=== PATIENT | female | born 1990 | race Caucasian/White ===

== ENCOUNTER 2017-02-12 14:45 | Emergency (ER) | payer OTHER ==
[~2017-02-12] VITALS: Ht 157.5 cm; Wt 56.0 kg
[~2017-02-12 14:45] MED LIST: ACET1TAB40 PO; ALBU8.5H3 INH; AMO500 PO; CETI10CA PO; ERYT1OIN6 RIGHT EYE; FLUT9.9S NASAL; GUAI473L22 PO; IBUP-1542 PO; IBUP800T25 PO
[2017-02-12 14:56] VITALS: Ht 157.5 cm; Wt 56.0 kg
[2017-02-12] MEDS ORDERED: ACET/BUTAL/CAFF/CODEINE CAP PO ONE (15:30)
--- NOTE | 2017-02-12 16:09 | RADRPT ---
PROCEDURE: CT Head without contrast. CLINICAL INDICATION: headache behind left eye, hx of migraines TECHNIQUE: Continuous axial CT images were obtained from the base of skull to the vertex. No cont rast was administered. The calculated radiation dose measures 720 mGy centimeters. The CTDI measures 45 mGy COMPARISON: No prior studies are available for comparison. FINDINGS: The ventricles are symmetric and normal in size. There is no mass effect or midline shift. There i s no abnormal intra-axial or extra-axial fluid collection. There is no evidence of intracranial hem orrhage. There are no abnormal areas of increased or decreased attenuation in the brain parenchyma. The bony calvarium is intact. The orbital soft tissue contents are unremarkable. Paranasal sinuses appear clear IMPRESSION: No mass effect or acute intracranial bleed. Unremarkable CT brain. RPTAT: HBST .Stef Alex MD, MD Date Time Electronically viewed and signed by .Stef Alex MD, on 02/12/2017 16:09 .T/
[2017-02-12] MEDS ORDERED: FIORICET PO (16:30)
[2017-02-12] MEDS ORDERED: TETRACAINE 0.5% 4 ML OPH LEFT EYE ONE (16:30)
[2017-02-12] MEDS ORDERED: ABCC1C PO (16:32)
[2017-02-12 16:57] VITALS: BP 130/76; PULSE 68; RESP 16; TEMP 97.9
--- NOTE | 2017-02-12 17:03 | ERD ---
ER Documentation Chief Complaint Date/Time DATE: 02/12/17 TIME: 16:48 Chief Complaint headache behind left eye x 1.5 wks; no n/v HPI This is a 26-year-old female presenting to emergency department for headache behind the left eye 1.5 weeks. Patient has history of migraine headaches and states this feels different than her normal migraines. Patient normally takes Advil at home for migraines. Patient states pain is localized to behind her left eye. Has no foreign body sensation. No halos around lights or curtain coming down vertically in visual field. No vision loss or change in vision. Patient states she has some blurriness to left eye. Patient has floaters in visual álvarez at times. No change in mood or behavior. No altered level of consciousness. No confusion. No facial weakness or paralysis. No slurred speech or facial droop. No erythema to eye. Denies this being the worst headache she is ever had. No head or eye trauma. ROS All systems reviewed and are negative except as per history of present illness. Medications Home Meds Active Scripts Trcdjmexmpjlw-Qxjwjumftz-Wvfdxiyi-Codeine* (Fioricet w/Codeine*) [id number] -30MG Cap, 1 CAP PO Q4H Y for PAIN LEVEL 1-5, #10 CAP Prov:JAMES ELLIS NP 02/12/17 Albuterol Sulfate* (Proair HFA*) 8.5 Gm Hfa.aer.ad, 2 PUFF INH Q4H Y for WHEEZING AND SOB, #1 INHALER Prov:RAUDEL GREEN NP 10/11/16 Fluticasone Propionate (Flonase Allergy Relief) 9.9 Ml Wickes.susp, 1 SPRAY NASAL BID, #1 BOTTLE TO EACH NOSTRIL Prov:RAUDEL GREEN NP 10/11/16 Cetirizine Hcl* (Zyrtec*) 10 Mg Capsule, 10 MG PO DAILY, #30 TAB.CHEW Prov:RAUDEL GREEN NP 10/11/16 Guaifenesin-Codeine Phosphate* (Guaifenesin* AC Cough Syrup) 473 Ml Liquid, 10 ML PO Q4H Y for COUGH, #60 ML Prov:RAUDEL GREEN NP 10/11/16 Ibuprofen* (Motrin*) 800 Mg Tab, 800 MG PO Q6, #30 TAB Prov:ELVIN GONZALEZ PA-C 02/04/16 Erythromycin (Erythromycin Opth) 3.5 Gm Oint..gm., 1 APPLIC RIGHT EYE QID for 7 Days, EA Prov:ELVIN GONZALEZ PA-C 02/04/16 Acetaminophen-Codeine* (Acetaminophen-Cod #3*) 300-30 Mg Tab, 1 TAB PO Q4H Y for PAIN, #10 TAB Prov:CARLA KATE MD 08/23/15 Ibuprofen* (Motrin*) 600 Mg Tab, 600 MG PO Q6, #14 TAB Prov:CARLA KATE MD 08/23/15 Amoxicillin* (Amoxicillin*) 500 Mg Cap, 500 MG PO TID for 10 Days, CAP Prov:CARLA KATE MD 08/23/15 Discontinued Scripts Acetamin/Butalbital/Caffeine* (Fioricet*) [id number] Tab, 1 TAB PO Q6H Y for PAIN, #10 TAB Prov:JAMES ELLIS NP 02/12/17 Allergies Allergies: Uncoded Allergies: IVP DYE (Allergy, Unknown, 04/05/15) PMhx/Soc Migraine headache Hx Neurological Disorder: Yes Hx Alcohol Use: No Hx Substance Use: No Hx Tobacco Use: No Physical Exam Vitals Vital Signs Date Time Temp Pulse Resp B/P Pulse Ox O2 Delivery O2 Flow Rate FiO2 02/12/17 14:56 97.8 81 18 122/74 99 Physical Exam Const: alert, oriented to person, place and time. smiling during exam Head: Atraumatic Eyes: Normal Conjunctiva. PERRL. no subconjunctival hemorrhage. ENT: Normal External Ears, Nose and Mouth. Neck: Full range of motion..~ No meningismus. Resp: Clear to auscultation bilaterally. no wheezing, rhonchi or crackles Cardio: Regular rate and rhythm, no murmurs Abd: Soft, non tender, non distended. Normal bowel sounds Skin: No petechiae or rashes Back: No midline or flank tenderness Ext: No cyanosis, or edema Neur: Awake and alert Psych: Normal Mood and Affect Results 24 hrs Current Medications Medications (Trade) Dose Ordered Sig/Sharri Route PRN Reason Start Time Stop Time Status Last Admin Dose Admin Acetam/Butalbital/ Caffeine/Codeine (Fioricet/ Codeine) 1 cap ONCE ONCE PO 02/12/17 15:30 02/12/17 15:31 DC 02/12/17 15:47 Tetracaine HCl (Tetracaine 0.5% Steri-Unit Agueda) 1 drop ONCE ONCE LEFT EYE 02/12/17 16:30 02/12/17 16:31 DC Procedures/MDM ED COURSE: The patient was stable throughout ED course. I kept the patient and/or family informed of laboratory and diagnostic imaging results throughout the ED course. Visual acuity 20/40 right 20/40 left 20/40 bilateral Ronald-Pen readings 23 mmHg, [address] head Patient: BERNABE CONNOLLY : 1990 Age: 26 Sex: F MR #: [id number] DOS: 02/12/17 1525 Ordering MD: JAMES ELLIS NP Location: [facility] Room/Bed: PROCEDURE: CT Head without contrast. CLINICAL INDICATION: headache behind left eye, hx of migraines TECHNIQUE: Continuous axial CT images were obtained from the base of skull to the vertex. No contrast was administered. The calculated radiation dose measures 720 mGy centimeters. The CTDI measures 45 mGy COMPARISON: No prior studies are available for comparison. FINDINGS: The ventricles are symmetric and normal in size. There is no mass effect or midline shift. There is no abnormal intra-axial or extra-axial fluid collection. There is no evidence of intracranial hemorrhage. There are no abnormal areas of increased or decreased attenuation in the brain parenchyma. The bony calvarium is intact. The orbital soft tissue contents are unremarkable. Paranasal sinuses appear clear IMPRESSION: No mass effect or acute intracranial bleed. Unremarkable CT brain. MDM: 26-year-old female presents to the emergency department for headache behind left eye. Patient has history of migraine headaches however states this feels different. No neuro deficits. No visual deficits. Visual acuity is normal to right, left and bilateral eyes. Patient denies use of glasses or contacts. Patient given Fioricet with codeine while in the ED. Patient states pain has improved. Ronald-Pen readings are normal. No foreign body sensation. No fevers. No lacrimation from eye. No erythema or subconjunctival hemorrhage. Low suspicion for acute closure glaucoma, optic neuritis, retinal detachment, brain mass, foreign body, iritis, subdural hemotoma or CVA. Differential diagnosis is migraine headache vs tension headache vs cluster headache. Patient is appropriate for outpatient management will be discharged with prescription for Fioricet with codeine instructed to follow-up with [facility] as soon as possible in the next 24-48 hours. Resources provided. Return to ED for any high fever, chest pain, difficulty breathing, shortness breath, wheezing, vomiting, diarrhea, abdominal pain or any new or worsening symptoms. Patient and patient's mother verbalize understanding. All questions answered at discharge. Departure Diagnosis: Primary Impression: Pain in eye Laterality: left Qualified Code: H57.12 - Pain in eye, left Additional Impression: Migraine Migraine type: unspecified Status migrainosus presence: without status migrainosus Intractability: not intractable Qualified Code: G43.909 - Migraine without status migrainosus, not intractable, unspecified migraine type Condition: Stable Patient Instructions: Headache, Migraine (Classical) Referrals: [facility] Hours: Mon - Fri 9:00 AM - 5:00 PM Additional Instructions: Follow-up with [facility] tomorrow. Return to ED for any high fever, chest pain, difficulty breathing, shortness breath, wheezing, vomiting, diarrhea, abdominal pain or any new or worsening symptoms. JAMES ELLIS NP Feb 12, 2017 17:03
== END 2017-02-12 16:58 | disposition home or self-care (01) ==
LOC: FTE 14:45
DX: H57.12 Ocular pain, left eye (principal); G43.909 Migraine, unspecified, not intractable, without status migrainosus
CPT/HCPCS: 70450; Z7502; Z7610